=== PATIENT | female | born 1985 | race African-American/Black ===

== ENCOUNTER 2019-10-17 18:51 | Emergency (ER) | payer OTHER ==
[~2019-10-17] VITALS: Ht 172.7 cm; Wt 117.9 kg
--- NOTE | 2019-10-17 19:08 | NUR ---
PT IS IN ROOM #1B, WAS BROUGHT TO [facility] BY JOHN, PT IS WAITING FOR DR ALEXANDER EVALUATION.
--- NOTE | 2019-10-17 19:10 | NUR ---
Dr. Fleming at bedside for MSE.
[2019-10-17] MEDS ORDERED: HALOPERIDOL LACTATE 5 MG/1 ML VIAL IM ONE (19:15)
[2019-10-17] MEDS ORDERED: LORAZEPAM 2 MG/1 ML VIAL IM ONE (19:15)
[2019-10-17] MEDS ORDERED: diphenhydrAMINE 50 MG/1 ML VIAL IM ONE (19:15)
[2019-10-17] MEDS ORDERED: diphenhydrAMINE 50 MG/1 ML VIAL ONE (19:21)
[2019-10-17] MEDS ORDERED: LORAZEPAM 2 MG/1 ML VIAL ONE (19:22)
[2019-10-17] MEDS ORDERED: HALOPERIDOL LACTATE 5 MG/1 ML VIAL ONE (19:22)
--- NOTE | 2019-10-17 19:30 | NUR ---
Xray at bedside.
--- NOTE | 2019-10-17 19:36 | NUR ---
Called Liquor Clerk for sitter, no sitter available at this time.
[2019-10-17 19:41] LABS: BASOPHILS % (AUTO) 0.7 % (0.0-2.0); EOSINOPHILS # (AUTO) 0.1 K/uL (0.0-0.7); HEMATOCRIT 32.5 % (31.2-41.9); HEMOGLOBIN 10.6 g/dL (10.9-14.3); LYMPHOCYTES # (AUTO) 1.6 K/uL (20.0-40.0); LYMPHOCYTES % (AUTO) 32.4 % (20.5-51.5); MEAN CORPUSCULAR HEMOGLOBIN 27.5 uug (24.7-32.8); MEAN CORPUSCULAR HGB CONC 33 g/dL (32.3-35.6); MEAN CORPUSCULAR VOLUME 83.9 fL (75.5-95.3); MONOCYTES # (AUTO) 0.5 K/uL (2.0-10.0); MONOCYTES % (AUTO) 10.7 % (0.0-11.0); NEUTROPHILS # (AUTO) 2.7 K/uL (1.8-8.9); NEUTROPHILS % (AUTO) 55.2 % (38.5-71.5); PLATELET COUNT (AUTO) 200 K/uL (179-408); RED BLOOD CELL COUNT(AUTO) 3.87 MIL/uL (3.63-4.92)
--- NOTE | 2019-10-17 19:45 | NUR ---
Security at bedside for 1:1
[2019-10-17 19:49] LABS: CARBON DIOXIDE 25 mmol/L (21-32); CHLORIDE 105 mmol/L (98-107); GLUCOSE 111 mg/dL (74-106); POTASSIUM 3.6 mmol/L (3.5-5.1); UREA NITROGEN, BLOOD 17 mg/dL (7-18)
[2019-10-17 19:55] LABS: ETHANOL < 3 MG/DL (0-0)
[2019-10-17 20:06] LABS: ALANINE AMINOTRANSFERASE 24 U/L (14-59); ALKALINE PHOSPHATASE 66 U/L (50-136); ASPARTATE AMINOTRANSFERASE 31 U/L (15-37); BILIRUBIN,DIRECT 0.2 mg/dL (0.0-0.2); BILIRUBIN,TOTAL 0.8 mg/dL (0.2-1.0); TOTAL PROTEIN, SERUM 7.5 g/dL (6.4-8.2)
[2019-10-17 20:14] LABS: ACETAMINOPHEN < 2.0 ug/mL (10-30)
[2019-10-17 20:35] LABS: THYROID STIMULATING HORMONE 1.163 mIU/mL (0.358-3.740)
--- NOTE | 2019-10-17 20:45 | NUR ---
Inserted in/out cath, urine sample collected, sent to lab.
[2019-10-17] MEDS ORDERED: MAGNESIUM SULFATE/D5W 100 ML IV SCH (21:00)
[2019-10-17] MEDS ORDERED: CEFEPIME HCL 2 G in IV DEXTROSE 5% 100 ML IV ONE (21:00)
[2019-10-17] MEDS ORDERED: AZITHROMYCIN IV 500 MG in IV DEXTROSE 5% 250 ML IV ONE (21:00)
[2019-10-17] MEDS ORDERED: IV NORMAL SALINE 1000 ML BAG IV ONE (21:00)
[2019-10-17] MEDS ORDERED: AZITHROMYCIN 500MG/ D5W 250ML IVPB **ER PYXIS ONLY IV ONE (21:07)
[2019-10-17] MEDS ORDERED: CEFEPIME HCL 1 G VIAL ONE (21:07)
[2019-10-17] MEDS ORDERED: MAGNESIUM SULFATE/D5W 100 ML ONE (21:08)
[2019-10-17 21:23] LABS: *BLOOD, URINE NEGATIVE (NEGATIVE); *CLARITY,URINE SLIGHTLY CLOUDY (CLEAR); *COLOR,URINE DARK YELLOW (YELLOW); *KETONES,URINE TRACE (NEGATIVE); *UROBILINOGEN,URINE 0.2 E.U./dl (NORMAL); LEUKOCYTE ESTERASE ,URINE TRACE (NEGATIVE); NITRITE, URINE NEGATIVE (NEGATIVE); PH,URINE 5.5 (5.0-8.0); UGLUCOSE NEGATIVE (NEGATIVE)
[2019-10-17 21:28] LABS: *BILIRUBIN,URIN 1+ (NEGATIVE)
[2019-10-17 21:30] LABS: *URINE HCG, QUAL NEGATIVE (NEGATIVE); BACTERIA,URINE FEW /HPF (NONE SEEN); RBC,URINE 0-3 /HPF (0-3); SQUAMOUS EPITHELIAL CELL,UR MANY /HPF (NONE SEEN)
[2019-10-17 21:36] LABS: *AMPHETAMINE, URINE POSITIVE (NEGATIVE); *BARBITURATE, URINE NEGATIVE (NEGATIVE); *CANNABINOID, URINE POSITIVE (NEGATIVE); *COCCAINE, URINE NEGATIVE (NEGATIVE); *OPIATE, URINE NEGATIVE (NEGATIVE); *PHENCYCLIDINE SCREEN,URINE NEGATIVE (NEGATIVE)
[2019-10-17 21:39] LABS: CREATINE KINASE, TOTAL 605 U/L (26-192); LACTATE DEHYDROGENASE 279 U/L (81-234)
[2019-10-17 21:42] LABS: FERRITIN 64 ng/mL (8-252)
--- NOTE | 2019-10-17 22:07 | NUR ---
Called Hermelinda So RN Pet eval for pt psych eval, stated that she knows about the patient, since pt is still psychotic and positive for meth, pt will need to be evaluated in the morning. made aware.
--- NOTE | 2019-10-17 23:54 | NUR ---
Provided patient with a sandwich per request. released left hand restraint.
--- NOTE | 2019-10-18 01:55 | NUR ---
Provided pt with a sandwich and water per pt request, rerestraint left arm, removed restraint on right arm.
--- NOTE | 2019-10-18 05:30 | NUR ---
Hermelinda So RN PET at bedside for psych eval.
--- NOTE | 2019-10-18 05:45 | NUR ---
Released 4 point restraints, pt ambulated to bathroom with steady gait, and cooperative.
--- NOTE | 2019-10-18 06:37 | NUR ---
Patient given written and verbal discharge instructions. Patient verbalizes understanding of instructions. Patient is ambulatory with steady gait. Pt provided with a taxi voucher back to [facility], all belongings taken, provided with food and clothing, and referral to drug abuse counseling.
[2019-10-18 07:07] VITALS: BP 115/75
== END 2019-10-18 07:09 | disposition home or self-care (01) ==
LOC: ER 18:58
DX: F23 Brief psychotic disorder (principal); J18.9 Pneumonia, unspecified organism; Z59.0 Homelessness; F15.129 Other stimulant abuse with intoxication, unspecified; F12.20 Cannabis dependence, uncomplicated; E66.01 Morbid (severe) obesity due to excess calories; E83.42 Hypomagnesemia; Z03.818 Encounter for observation for suspected exposure to other biological agents ruled out; R94.31 Abnormal electrocardiogram [ECG] [EKG]
CPT/HCPCS: 0099U; 36415; 71045; 80048; 80076; 80307 ×2; 80329; 81001; 82550; 82728; 83605; 83615; 83735; 83880; 84145; 84443; 84484; 84703; 85025; 85379; 87040 ×2; 87400; 87635; 93005; 96365; 96366; 96368; 96372; 96375; 99285; G0480; J0456; J0692; J1200; J1630; J2060; J3475; J7060; 70030-TC; A4663; C1758; J7030